=== PATIENT | female | born 1980 ===

== ENCOUNTER 2022-03-21 08:53 | Emergency (ER) | payer OTHER ==
[~2022-03-21] VITALS: Ht 162.6 cm; Wt 82.0 kg
[2022-03-21 09:40] VITALS: BP 127/86
== END 2022-03-21 09:42 ==
LOC: ER 08:53
DX: E11.65 Type 2 diabetes mellitus with hyperglycemia (principal); I10 Essential (primary) hypertension; Z68.31 Body mass index [BMI] 31.0-31.9, adult
CPT/HCPCS: 82962; 99283